=== PATIENT | female | born 2000 | race Caucasian/White ===

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

== ENCOUNTER 2018-03-14 10:41 | Emergency (ER) | payer OTHER ==
[2018-03-14 12:11] VITALS: BP 110/62
--- NOTE | 2018-03-14 12:33 | ED ---
Throat Pain/Nasal Congestion - HPI Summary HPI Summary: 17 yr old female with the complaint of runny nose, sore throat, cough. Denies sinus pain, ear pain. The patient has a cough productive of some yellow sputum. She has been ill for just three days. She states she had fever last night. No fever today. No SOB. No history of asthma. No SOB. She states she has finals this week at [employer] and would also like a note for school. She would like to go home and try to take her finals online. - History of Current Complaint Chief Complaint: UCGeneralIllness Time Seen by Provider: 03/14/18 12:15 - Allergies/Home Medications Allergies/Adverse Reactions: Allergies Allergy/AdvReac Type Severity Reaction Status Date / Time No Known Allergies Allergy Verified 12/24/17 12:43 Home Medications: Home Medications Acetaminophen [Tylenol] 650 mg PO Q6H 03/14/18 [History Confirmed 03/14/18] PMH/Surg Hx/FS Hx/Imm Hx Infectious Disease History: No Infectious Disease History: Denies: Traveled Outside the [place] in Last 30 Days - Family History Known Family History: Positive: None, Hypertension - Social History Occupation: Student Lives: Dormitory/Roommates Alcohol Use: Occasionally Substance Use Type: Reports: None Smoking Status (MU): Never Smoked Tobacco Review of Systems Positive: Fever Positive: Sore Throat, Nasal Discharge Positive: Cough All Other Systems Reviewed And Are Negative: Yes Physical Exam Triage Information Reviewed: Yes Vital Signs On Initial Exam: Initial Vitals Temp Pulse Resp BP Pulse Ox 98.7 F 88 15 110/62 99 03/14/18 12:08 03/14/18 12:08 03/14/18 12:08 03/14/18 12:08 03/14/18 12:08 Vital Signs Reviewed: Yes Appearance: Positive: Well-Appearing, No Pain Distress Skin: Positive: Warm Eyes: Positive: EOMI, JULIO CESAR, Conjunctiva Clear ENT: Positive: Pharyngeal erythema, TMs normal, Uvula midline. Negative: Tonsillar swelling, Tonsillar exudate, Trismus, Muffled voice, Hoarse voice, Sinus tenderness Neck: Positive: Supple Respiratory/Lung Sounds: Positive: Clear to Auscultation, Breath Sounds Present Cardiovascular: Positive: RRR. Negative: Murmur Abdomen Description: Positive: Nontender Musculoskeletal: Positive: Strength/ROM Intact Neurological: Positive: Sensory/Motor Intact, Alert, Oriented to Person Place, Time, CN Intact II-III, Normal Gait, Speech Normal Psychiatric: Positive: Normal - [place] Coma Scale Best Eye Response: 4 - Spontaneous Best Motor Response: 6 - Obeys Commands Best Verbal Response: 5 - Oriented Coma Scale Total: 15 Diagnostics - Vital Signs Vital Signs Temp Pulse Resp BP Pulse Ox 03/14/18 12:08 98.7 F 88 15 110/62 99 - Laboratory Lab Results: Lab Results 03/14/18 Range/Units 12:17 Group A Strep Rapid Negative (Negative) Lab Statement: Any lab studies that have been ordered have been reviewed, and results considered in the medical decision making process. EENT Course/Dx - Course Course Of Treatment: 17 yr old with URI symptoms. Plan DC home good condition. FU with PMD. Note for school given. - Diagnoses Provider Diagnoses: Upper respiratory infection Discharge - Sign-Out/Discharge Documenting (check all that apply): Discharge/Admit/Transfer - Discharge Plan Condition: Good Disposition: HOME Patient Education Materials: Upper Respiratory Infection (ED) Forms: *School Release Referrals: No Primary Care Phys,NOPCP [Primary Care Provider] - [facility] [Outside] - 2 Days - Billing Disposition and Condition Condition: GOOD Disposition: HOME
== END 2018-03-14 12:55 | disposition home or self-care (01) ==
LOC: UCCORT 10:41
DX: J06.9 Acute upper respiratory infection, unspecified (principal)
CPT/HCPCS: 87651; 99211; G0463

== ENCOUNTER 2019-09-16 12:57 | Emergency (ER) | payer OTHER ==
[2019-09-16 14:39] VITALS: BP 110/58
--- NOTE | 2019-09-16 14:57 | UC ---
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 Today she can't move her toes and the dorsum/lateral side of her foot is in a lot of pain. She has been icing it and elevating it. Hx of spraining the right ankle 5 yrs ago. Pleasant 18 yo female c/o R ankle and R foot pain s/p rolling ankle last evening. Was departing from a formal event, wearing heels, and rolled ankle on the way out. Pain immediate. Elevated. No ibuprofen yet. No prox leg pain. No recent illness, although some sniffles, reports not unusual this time of the year. - History of Current Complaint Chief Complaint: UCLowerExtremity Stated Complaint: RT ANKLE INJURY Time Seen by Provider: 09/16/19 14:56 Hx Obtained From: Patient Hx Last Menstrual Period: Sep 07 Pain Intensity: 8 - Allergies/Home Medications Allergies/Adverse Reactions: Allergies Allergy/AdvReac Type Severity Reaction Status Date / Time No Known Allergies Allergy Verified 09/16/19 14:39 PMH/Surg Hx/FS Hx/Imm Hx Previously Healthy: Yes - Surgical History Surgical History: None - Family History Known Family History: Positive: None, Hypertension - Social History Alcohol Use: Rare Substance Use Type: None Smoking Status (MU): Never Smoked Tobacco - Immunization History Most Recent Influenza Vaccination: none this year Vaccination Up to Date: Yes Review of Systems All Other Systems Reviewed And Are Negative: Yes Constitutional: Positive: Negative Skin: Positive: Negative Eyes: Positive: Negative ENT: Positive: Negative Respiratory: Positive: Negative Cardiovascular: Positive: Negative Gastrointestinal: Positive: Negative Genitourinary: Positive: Negative Motor: Positive: Other - see hpi Neurovascular: Positive: Negative Musculoskeletal: Positive: Arthralgia Neurological: Positive: Negative Psychological: Positive: Negative Is Patient Immunocompromised?: No Physical Exam Triage Information Reviewed: Yes Appearance: Well-Appearing, Well-Nourished Vital Signs: Initial Vital Signs Temp 100.3 F 09/16/19 14:34 Pulse 84 09/16/19 14:34 Resp 16 09/16/19 14:34 BP 110/58 09/16/19 14:34 Pulse Ox 98 09/16/19 14:34 Vital Signs Reviewed: Yes Eye Exam: Normal ENT: Positive: Pharyngeal erythema - very mild post pharyng redness, at margin. No sores / exudates. Uvula midline. c/w post nasal drip c/o's. Neck exam: Normal Respiratory Exam: Normal - RR normal, no tachypnea, no dyspnea Cardiovascular Exam: Normal - HR normal. DP palbable. PT not palpable, but deep palpation not done d/t ++ deg of swelling and pain. Distal CR is good. Abdominal Exam: Normal - no c/o Musculoskeletal Exam: Other - See above. R ankle and R lat foot ++ swelling and + eccymoses. Very tender. No prox tib-fib tenderness. Distal foot nontender, but prox 5th tarsal is tender. Neurological Exam: Normal - distal sens LT present Psychological Exam: Normal - conversing easily and appropriately Skin Exam: Normal - no visible or reported rash nondiaphoretic + eccymoses Lower Extremity Course/Dx - Course Course Of Treatment: Crutches ordered Ibuprofen ordered (pt has eaten lunch recently) Xrays - reviewed xray / reports with pt. Placed on disc, she will f/u with home orthopedist if possible. Meanwhile, however, referred to local orthopedics. See avs instructions. Questions as posed answered to the best of my ability. Pt requests temporary hc parking permit. I agree this will be helpful. - Differential Dx/Diagnosis Provider Diagnosis: Right ankle sprain, Right foot sprain Discharge ED - Sign-Out/Discharge Documenting (check all that apply): Patient Departure All imaging exams completed and their final reports reviewed: Yes - Discharge Plan Condition: Improved Disposition: HOME Prescriptions: Ibuprofen TAB* [Motrin TAB* 600 MG] 600 mg PO Q8H PRN #30 tab PRN Reason: Pain Patient Education Materials: Ankle Sprain (ED), Foot Sprain (ED) Referrals: No Primary Care Phys,NOPCP [Primary Care Provider] - Jennifer Dubois MD [Medical Doctor] - Additional Instructions: Please follow up with your primary orthopedic doctor upon returning home. Or you may follow up here, if you are not able to see your primary orthopedic doctor. NO WEIGHT BEARING until ok by orthpedic doctor AND not painful with weight bearing. Seek medical attention for worse or new problems. Hydrate. Rest, ice frequently (but avoid cold burn), elevate as much as possible as frequently as possible. - Billing Disposition and Condition Condition: IMPROVED Disposition: Home
[2019-09-16] MEDS ORDERED: Ibuprofen TAB* 600 MG PO ONE (15:03)
== END 2019-09-16 16:24 | disposition home or self-care (01) ==
LOC: UCCORT 12:57
DX: S93.401A Sprain of unspecified ligament of right ankle, initial encounter (principal); S93.601A Unspecified sprain of right foot, initial encounter; X50.9XXA Other and unspecified overexertion or strenuous movements or postures, initial encounter; Y92.9 Unspecified place or not applicable
CPT/HCPCS: 99213; A9270-GY; G0463